=== PATIENT | female | born 1975 | race African-American/Black ===

== ENCOUNTER 2018-07-01 17:59 | Emergency (ER) | payer MEDICAID ==
[~2018-07-01] VITALS: Ht 165.1 cm; Wt 81.6 kg
[2018-07-01 18:14] VITALS: BP 141/96
== END 2018-07-02 00:05 | disposition left against medical advice (07) ==
LOC: ER 17:59
DX: R05 Cough (principal); Z53.21 Procedure and treatment not carried out due to patient leaving prior to being seen by health care provider
CPT/HCPCS: 71046

== ENCOUNTER 2018-08-09 04:42 | Emergency (ER) | payer MEDICAID ==
[~2018-08-09] VITALS: Ht 167.6 cm; Wt 81.6 kg
[2018-08-09 05:44] LABS: Basophils # (auto) 0 uL; Basophils % (auto) 0.4 % (0.0-2.0); Eosinophils # (auto) 0 uL; Eosinophils % (auto) 0.4 % (0.0-7.0); Hematocrit 41.6 % (36.0-46.0); Hemoglobin 14.1 g/dL (12.2-16.2); Lymphocytes # (auto) 1.5 uL; Lymphocytes % (auto) 15.5 % (10.0-50.0); Mean Corpuscular Hemoglobin 31.7 pg (28.0-32.0); Mean Corpuscular Hgb Conc. 33.9 g/dL (32.0-36.0); Mean Corpuscular Volume 93.3 fL (80.0-100.0); Monocytes # (auto) 0.5 uL; Monocytes % (auto) 5.2 % (0.0-12.0); Neutrophils # (auto) 7.4 uL; Neutrophils % (auto) 78.5 % (37.0-80.0); Nucleated Red Blood Cells % 0.1 %; Platelet Count (auto) 189 10^3/uL (140-450); Red Blood Cells 4.45 10^6/uL (4.0-5.20); Red Cell Distribution Width 13.8 % (11.8-14.3); White Blood Cell 9.4 10^3/uL (4.4-10.8)
[2018-08-09] MEDS ORDERED: SODIUM CHLORIDE 0.9% 1,000 ML IV ONE (05:45)
[2018-08-09 05:57] LABS: Urine Bacteria NONE SEEN /hpf (None Seen); Urine Blood Negative /uL (Negative); Urine Mucus FEW (None Seen); Urine Specific Gravity 1.027 (1.001-1.035); Urine WBC 1 /hpf (0 - 5)
[2018-08-09 06:03] LABS: Albumin 3.3 g/dL (3.4-5.0); BUN/Creatinine Ratio 11.3; Calcium 8.5 mg/dL (8.5-10.1); Potassium 3.6 mmol/L (3.5-5.1)
[2018-08-09 06:06] LABS: Bilirubin, Total 0.4 mg/dL (0.2-1.0); Total Protein 6.9 g/dL (6.4-8.2)
[2018-08-09 06:13] LABS: Amylase 33 U/L (25-115); Lipase 151 U/L (73-393)
== END 2018-08-09 07:36 | disposition home or self-care (01) ==
LOC: ER 04:43
DX: K29.70 Gastritis, unspecified, without bleeding (principal); K44.9 Diaphragmatic hernia without obstruction or gangrene; I10 Essential (primary) hypertension
CPT/HCPCS: 36415; 74176; 80053; 81001; 81025; 82150; 83690; 85025; 96360; 99285; J7030

== ENCOUNTER 2019-11-27 10:36 | Emergency (ER) | payer MEDICAID ==
[~2019-11-27] VITALS: Ht 165.1 cm; Wt 81.6 kg
[2019-11-27 11:54] VITALS: BP 116/79
== END 2019-11-27 13:21 | disposition home or self-care (01) ==
LOC: ER 10:36
DX: J20.9 Acute bronchitis, unspecified (principal); F17.210 Nicotine dependence, cigarettes, uncomplicated; I10 Essential (primary) hypertension
CPT/HCPCS: 71046

== ENCOUNTER 2021-02-04 16:35 | Emergency (ER) | payer MEDICAID ==
[~2021-02-04] VITALS: Ht 165.1 cm; Wt 86.2 kg
[2021-02-04 17:15] VITALS: BP 119/95
[2021-02-04] MEDS ORDERED: LACTULOSE 20Gm/30ML SOLN PO ONE (18:15)
== END 2021-02-04 18:23 | disposition home or self-care (01) ==
LOC: ER 16:35
DX: K59.00 Constipation, unspecified (principal); J03.90 Acute tonsillitis, unspecified; J44.9 Chronic obstructive pulmonary disease, unspecified; I10 Essential (primary) hypertension; F17.210 Nicotine dependence, cigarettes, uncomplicated
CPT/HCPCS: 74018; 93005

== ENCOUNTER 2021-02-12 02:17 | Emergency (ER) | payer MEDICAID ==
[~2021-02-12] VITALS: Ht 152.4 cm; Wt 85.7 kg
[2021-02-12 03:04] LABS: Basophils # (auto) 0.1 10 ^3/uL (0-0.2); Basophils % (auto) 0.8 % (0.0-2.0); Eosinophils # (auto) 0.1 10 ^3/uL (0-0.8); Eosinophils % (auto) 1.2 % (0.0-7.0); Hematocrit 42.3 % (36.0-46.0); Hemoglobin 14.2 g/dL (12.2-16.2); Lymphocytes # (auto) 1.3 10 ^3/uL (0.4-5.4); Lymphocytes % (auto) 16.9 % (10.0-50.0); Mean Corpuscular Hgb Conc. 33.5 g/dL (32.0-36.0); Mean Corpuscular Volume 92.5 fL (80.0-100.0); Monocytes # (auto) 0.6 10 ^3/uL (0-1.3); Monocytes % (auto) 7.6 % (0.0-12.0); Neutrophils # (auto) 5.6 10 ^3/uL (1.6-8.6); Neutrophils % (auto) 73.5 % (37.0-80.0); Nucleated Red Blood Cells % 0.2 %; Platelet Count (auto) 220 10^3/uL (140-450); Red Blood Cells 4.57 10^6/uL (4.0-5.20); Red Cell Distribution Width 13.3 % (11.8-14.3); White Blood Cell 7.6 10^3/uL (4.4-10.8)
[2021-02-12 03:23] LABS: Albumin 3.3 g/dL (3.4-5.0); Calcium 8.5 mg/dL (8.5-10.1); Magnesium 2.4 mg/dL (1.6-2.6); Potassium 3.3 mmol/L (3.5-5.1)
[2021-02-12 03:27] LABS: Bilirubin, Total 0.4 mg/dL (0.2-1.0); Total Protein 7.2 g/dL (6.4-8.2)
[2021-02-12] MEDS ORDERED: FAMOTIDINE (10MG/ML) 2ML VL IV ONE (03:45)
[2021-02-12] MEDS ORDERED: LACTATED RINGER'S 1,000 ML IV ONE (03:45)
[2021-02-12] MEDS ORDERED: DICYCLOMINE HCL (10MG/ML) 2 ML AMPULE IM ONE (03:45)
[2021-02-12 05:29] LABS: Urine Bacteria MOD /hpf (None Seen); Urine Blood 3+ /uL (Negative); Urine Mucus FEW (None Seen); Urine Specific Gravity 1.038 (1.001-1.035); Urine WBC 24 /hpf (0 - 5)
[2021-02-12 06:36] VITALS: BP 129/94
== END 2021-02-12 06:53 | disposition home or self-care (01) ==
LOC: ER 02:17
DX: N39.0 Urinary tract infection, site not specified (principal); K59.00 Constipation, unspecified; F17.210 Nicotine dependence, cigarettes, uncomplicated; J44.9 Chronic obstructive pulmonary disease, unspecified; K21.9 Gastro-esophageal reflux disease without esophagitis; I10 Essential (primary) hypertension; Z32.02 Encounter for pregnancy test, result negative
CPT/HCPCS: 36415; 80053; 81001; 81025; 83605; 83690; 83735; 85025; 96361; 96372; 96374; 99283; J0500; J3490

== ENCOUNTER 2022-07-05 07:55 | Emergency (ER) | payer MEDICAID ==
[~2022-07-05] VITALS: Ht 167.6 cm; Wt 86.7 kg
[2022-07-05 08:10] VITALS: BP 146/111
[2022-07-05] MEDS ORDERED: ACET-1158 PO (08:52)
[2022-07-05] MEDS ORDERED: KETOROLAC TROMETH 60MG/2ML VIAL IM ONE (09:00)
== END 2022-07-05 08:52 | disposition home or self-care (01) ==
LOC: ER 07:55
DX: M72.2 Plantar fascial fibromatosis (principal); M77.32 Calcaneal spur, left foot; J45.909 Unspecified asthma, uncomplicated; I10 Essential (primary) hypertension; F17.210 Nicotine dependence, cigarettes, uncomplicated
CPT/HCPCS: 73630; 96372; 99283; J1885

== ENCOUNTER 2022-07-28 04:07 | Emergency (ER) | payer MEDICAID ==
[~2022-07-28] VITALS: Ht 165.1 cm; Wt 84.0 kg
[~2022-07-28 04:07] MED LIST: ACET-1158 PO
[2022-07-28 05:27] LABS: Urine Bacteria NONE SEEN /hpf (None Seen); Urine Blood Negative /uL (Negative); Urine WBC 7 /hpf (0 - 5)
[2022-07-28 06:04] VITALS: BP 149/110
[2022-07-28] MEDS ORDERED: FLUC150T38 PO (06:49)
[2022-07-28] MEDS ORDERED: BACDST PO (06:49)
[2022-07-28] MEDS ORDERED: PRED20TA2 PO (06:49)
[2022-07-28] MEDS ORDERED: PROM1SOL4 PO (06:49)
== END 2022-07-28 07:08 | disposition home or self-care (01) ==
LOC: ER 04:07
DX: N39.0 Urinary tract infection, site not specified (principal); N76.0 Acute vaginitis; J20.9 Acute bronchitis, unspecified; I10 Essential (primary) hypertension; J45.909 Unspecified asthma, uncomplicated; K21.9 Gastro-esophageal reflux disease without esophagitis; F17.210 Nicotine dependence, cigarettes, uncomplicated; Z79.899 Other long term (current) drug therapy
CPT/HCPCS: 71045; 81001

== ENCOUNTER 2023-03-08 23:03 | Emergency (ER) | payer MEDICAID ==
[~2023-03-08] VITALS: Ht 165.1 cm; Wt 84.8 kg
[~2023-03-08 23:03] MED LIST changes: +BACDST PO; +FLUC150T38 PO; +PRED20TA2 PO; +PROM1SOL4 PO
[2023-03-08 23:48] LABS: Urine Bacteria FEW /hpf (None Seen); Urine Blood Negative /uL (Negative); Urine WBC 1 /hpf (0 - 5)
[2023-03-08 23:53] LABS: Basophils # (auto) 0.1 10 ^3/uL (0-0.2); Basophils % (auto) 0.6 % (0.0-2.0); Eosinophils # (auto) 0.1 10 ^3/uL (0-0.8); Eosinophils % (auto) 0.8 % (0.0-7.0); Hemoglobin 14.5 g/dL (12.2-16.2); Lymphocytes # (auto) 2.1 10 ^3/uL (0.4-5.4); Lymphocytes % (auto) 24.6 % (10.0-50.0); Mean Corpuscular Hemoglobin 31.4 pg (28.0-32.0); Mean Corpuscular Hgb Conc. 34.5 g/dL (32.0-36.0); Mean Corpuscular Volume 91.2 fL (80.0-100.0); Monocytes # (auto) 0.7 10 ^3/uL (0-1.3); Monocytes % (auto) 7.8 % (0.0-12.0); Neutrophils # (auto) 5.8 10 ^3/uL (1.6-8.6); Neutrophils % (auto) 66.2 % (37.0-80.0); Nucleated Red Blood Cells % 0.1 %; Red Blood Cells 4.61 10^6/uL (4.0-5.20); Red Cell Distribution Width 13.8 % (11.8-14.3); White Blood Cell 8.7 10^3/uL (4.4-10.8)
[2023-03-09 00:14] LABS: Albumin 3.2 g/dL (3.4-5.0); BUN/Creatinine Ratio 9.7 (10.0-20.0); Calcium 9.1 mg/dL (8.5-10.1); Potassium 3.5 mmol/L (3.5-5.1)
[2023-03-09 00:16] LABS: Bilirubin, Total 0.4 mg/dL (0.2-1.0); Total Protein 7.4 g/dL (6.4-8.2)
[2023-03-09] MEDS ORDERED: KETOROLAC TROMETH 30 MG/ML 1ML VIAL IM ONE (00:45)
[2023-03-09] MEDS ORDERED: cefTRIAXone SOD 1,000 MG VL IM ONE (00:45)
[2023-03-09] MEDS ORDERED: NITR-87 PO (01:18)
[2023-03-09 02:05] VITALS: BP 123/80
== END 2023-03-09 02:21 | disposition home or self-care (01) ==
LOC: ER 23:03
DX: N39.0 Urinary tract infection, site not specified (principal); F17.210 Nicotine dependence, cigarettes, uncomplicated; J45.909 Unspecified asthma, uncomplicated; K21.9 Gastro-esophageal reflux disease without esophagitis; I10 Essential (primary) hypertension; Z88.6 Allergy status to analgesic agent; Z88.2 Allergy status to sulfonamides
CPT/HCPCS: 36415; 74176; 80053; 81001; 83690; 85025; 96372; 99285; J0696; J1885

== ENCOUNTER 2023-04-05 19:57 | Emergency (ER) | payer MEDICAID, OTHER ==
[~2023-04-05] VITALS: Ht 165.1 cm; Wt 84.1 kg
[~2023-04-05 19:57] MED LIST changes: -ACET-1158 PO; +ACET500T58 PO; +NITR-87 PO
[2023-04-05] MEDS ORDERED: HYDROcodone-ACET 5/325MG TAB PO ONE (23:30)
[2023-04-05] MEDS ORDERED: AMOXICILLIN/CLAVUL 875 MG TAB PO ONE (23:30)
[2023-04-05] MEDS ORDERED: AUG875T PO (23:39)
[2023-04-05] MEDS ORDERED: IBU600T PO (23:39)
[2023-04-06 00:16] VITALS: BP 103/65
== END 2023-04-06 00:16 | disposition home or self-care (01) ==
LOC: ER 20:04
DX: T16.1XXA Foreign body in right ear, initial encounter (principal); H66.91 Otitis media, unspecified, right ear; J45.909 Unspecified asthma, uncomplicated; I10 Essential (primary) hypertension; K21.9 Gastro-esophageal reflux disease without esophagitis; F17.210 Nicotine dependence, cigarettes, uncomplicated; Z79.1 Long term (current) use of non-steroidal anti-inflammatories (NSAID); Z98.890 Other specified postprocedural states; Z79.899 Other long term (current) drug therapy; X58.XXXA Exposure to other specified factors, initial encounter; Y93.89 Activity, other specified; Y92.89 Other specified places as the place of occurrence of the external cause; Y99.8 Other external cause status

== ENCOUNTER 2023-08-15 07:04 | Emergency (ER) | payer OTHER ==
[~2023-08-15] VITALS: Ht 165.1 cm; Wt 83.6 kg
[~2023-08-15 07:04] MED LIST changes: +AUG875T PO; +IBU600T PO
[2023-08-15 07:20] VITALS: BP 111/89; PULSE 85; RESP 18; O2SAT 97
[2023-08-15 07:50] LABS: Urine Bacteria NONE SEEN /hpf (None Seen); Urine Blood Negative /uL (Negative); Urine Clarity Clear (Clear); Urine Color Straw (Yellow); Urine Protein, UAD Negative (Negative); Urine Specific Gravity 1.002 (1.001-1.035); Urine Urobilinogen Normal (Negative); Urine WBC <1 /hpf (0 - 5); Urine pH 6.5 (5.0-8.0)
[2023-08-15 08:27] LABS: Basophils # (auto) 0.1 10 ^3/uL (0-0.2); Basophils % (auto) 0.7 % (0.0-2.0); Eosinophils # (auto) 0.1 10 ^3/uL (0-0.8); Eosinophils % (auto) 0.7 % (0.0-7.0); Lymphocytes # (auto) 2.7 10 ^3/uL (0.4-5.4); Lymphocytes % (auto) 33.4 % (10.0-50.0); Mean Corpuscular Hemoglobin 30.5 pg (28.0-32.0); Mean Corpuscular Hgb Conc. 33.3 g/dL (32.0-36.0); Mean Corpuscular Volume 91.4 fL (80.0-100.0); Monocytes # (auto) 0.5 10 ^3/uL (0-1.3); Monocytes % (auto) 6.4 % (0.0-12.0); Neutrophils # (auto) 4.7 10 ^3/uL (1.6-8.6); Neutrophils % (auto) 58.8 % (37.0-80.0); Nucleated Red Blood Cells % 0.2 %; Red Blood Cells 4.59 10^6/uL (4.0-5.20); Red Cell Distribution Width 13.3 % (11.8-14.3)
[2023-08-15] MEDS ORDERED: PANT40TA2 PO (08:40)
[2023-08-15 08:42] LABS: Alanine Aminotransferase 12 U/L (7-40); Albumin 4.4 g/dL (3.2-4.8); Alkaline Phosphatase 105 U/L (46-116); Anion Gap 4 (5-15); Aspartate Aminotransferase 12 U/L (13-40); BUN/Creatinine Ratio 8.1 (10.0-20.0); Blood Urea Nitrogen 7 mg/dL (9-23); Calcium 9.8 mg/dL (8.7-10.4); Carbon Dioxide 31 mmol/L (20-30); Chloride 104 mmol/L (98-107); Glucose 114 mg/dL (74-106); Lipase 95 U/L (12-53); Potassium 3.7 mmol/L (3.5-5.1); Sodium 139 mmol/L (136-145)
[2023-08-15 08:43] LABS: Bilirubin, Total 0.5 mg/dL (0.2-1.0); Total Protein 7.2 g/dL (5.7-8.2)
== END 2023-08-15 10:05 | disposition left against medical advice (07) ==
LOC: ER 07:04
DX: K29.70 Gastritis, unspecified, without bleeding (principal); J45.909 Unspecified asthma, uncomplicated; K21.9 Gastro-esophageal reflux disease without esophagitis; I10 Essential (primary) hypertension; F17.210 Nicotine dependence, cigarettes, uncomplicated; Z98.890 Other specified postprocedural states; Z79.899 Other long term (current) drug therapy
CPT/HCPCS: 36415; 74176; 80053; 81001; 83690; 85025

== ENCOUNTER 2024-02-02 00:17 | Emergency (ER) | payer OTHER ==
[~2024-02-02] VITALS: Ht 165.1 cm; Wt 84.9 kg
[~2024-02-02 00:17] MED LIST changes: +PANT40TA2 PO
[2024-02-02 00:35] LABS: Basophils # (auto) 0.1 10 ^3/uL (0-0.2); Basophils % (auto) 0.8 % (0.0-2.0); Eosinophils # (auto) 0.1 10 ^3/uL (0-0.8); Eosinophils % (auto) 0.7 % (0.0-7.0); Hemoglobin 14.5 g/dL (12.2-16.2); Lymphocytes # (auto) 3.7 10 ^3/uL (0.4-5.4); Lymphocytes % (auto) 36.6 % (10.0-50.0); Mean Corpuscular Hemoglobin 30.3 pg (28.0-32.0); Mean Corpuscular Volume 91.9 fL (80.0-100.0); Monocytes # (auto) 0.7 10 ^3/uL (0-1.3); Monocytes % (auto) 7.2 % (0.0-12.0); Neutrophils # (auto) 5.6 10 ^3/uL (1.6-8.6); Neutrophils % (auto) 54.7 % (37.0-80.0); Nucleated Red Blood Cells % 0.1 %; Red Blood Cells 4.79 10^6/uL (4.0-5.20); White Blood Cell 10.2 10^3/uL (4.4-10.8)
[2024-02-02] MEDS: MAALOX PLUS or MAALOX 30 ML PO ONE (00:45)
[2024-02-02] MEDS: LIDOCAINE VISCOUS 2% 15ML UD PO ONE (00:45)
[2024-02-02 00:55] LABS: Alanine Aminotransferase 13 U/L (7-40); Albumin 4.4 g/dL (3.2-4.8); Alkaline Phosphatase 106 U/L (46-116); Anion Gap 3 (5-15); Aspartate Aminotransferase 11 U/L (13-40); BUN/Creatinine Ratio 12.1 (10.0-20.0); Bilirubin, Total 0.4 mg/dL (0.2-1.0); Blood Urea Nitrogen 12 mg/dL (9-23); Calcium 9.7 mg/dL (8.7-10.4); Carbon Dioxide 29 mmol/L (20-30); Chloride 104 mmol/L (98-107); Glucose 134 mg/dL (74-106); Potassium 3.5 mmol/L (3.5-5.1); Sodium 136 mmol/L (136-145); Total Protein 7.1 g/dL (5.7-8.2)
[2024-02-02 02:05] LABS: Urine Bacteria None Seen /hpf (None Seen)
[2024-02-02 02:13] LABS: Urine Blood Negative /uL (Negative); Urine Clarity Clear (Clear); Urine Color Colorless (Yellow); Urine Protein, UAD Negative (Negative); Urine Specific Gravity 1.006 (1.001-1.035); Urine Urobilinogen Normal (Negative); Urine WBC <1 /hpf (0 - 5)
[2024-02-02] MEDS: FAMOTIDINE 20 MG TAB PO ONE (05:09)
[2024-02-02 05:12] VITALS: BP 132/84; PULSE 82; RESP 16; TEMP 97.8; O2SAT 98
== END 2024-02-02 05:11 | disposition home or self-care (01) ==
LOC: ER 00:17
DX: R07.89 Other chest pain (principal); R10.13 Epigastric pain; J45.909 Unspecified asthma, uncomplicated; K21.9 Gastro-esophageal reflux disease without esophagitis; I10 Essential (primary) hypertension; F17.210 Nicotine dependence, cigarettes, uncomplicated
CPT/HCPCS: 36415; 71045; 74176; 80053; 81001; 83690; 84484; 85025; 93005

== ENCOUNTER 2024-07-14 03:51 | Emergency (ER) | payer OTHER ==
[~2024-07-14] VITALS: Ht 165.1 cm; Wt 83.3 kg
[2024-07-14 04:15] VITALS: BP 132/98; TEMP 98.2
[2024-07-14] MEDS: MAALOX PLUS or MAALOX 30 ML PO ONE (04:34)
[2024-07-14] MEDS: FAMOTIDINE 20 MG TAB PO ONE (04:35)
[2024-07-14 04:43] LABS: Alanine Aminotransferase 10 U/L (7-40); Albumin 4.2 g/dL (3.2-4.8); Alkaline Phosphatase 104 U/L (46-116); Anion Gap 3 (5-15); Aspartate Aminotransferase 10 U/L (13-40); BUN/Creatinine Ratio 13.2 (10.0-20.0); Bilirubin, Total 0.4 mg/dL (0.2-1.0); Blood Urea Nitrogen 12 mg/dL (9-23); Calcium 9.4 mg/dL (8.7-10.4); Carbon Dioxide 30 mmol/L (20-31); Chloride 105 mmol/L (98-107); Glucose 109 mg/dL (74-106); Potassium 3.4 mmol/L (3.5-5.1); Sodium 138 mmol/L (136-145); Total Protein 6.9 g/dL (5.7-8.2)
[2024-07-14 04:44] LABS: Basophils # (auto) 0 10 ^3/uL (0-0.2); Basophils % (auto) 0.3 % (0.0-2.0); Eosinophils # (auto) 0 10 ^3/uL (0-0.8); Eosinophils % (auto) 0.3 % (0.0-7.0); Hemoglobin 14.1 g/dL (12.2-16.2); Lymphocytes # (auto) 3.6 10 ^3/uL (0.4-5.4); Lymphocytes % (auto) 33.4 % (10.0-50.0); Mean Corpuscular Hemoglobin 31.4 pg (28.0-32.0); Mean Corpuscular Hgb Conc. 34.3 g/dL (32.0-36.0); Mean Corpuscular Volume 91.4 fL (80.0-100.0); Monocytes # (auto) 0.7 10 ^3/uL (0-1.3); Monocytes % (auto) 6.2 % (0.0-12.0); Neutrophils # (auto) 6.4 10 ^3/uL (1.6-8.6); Neutrophils % (auto) 59.8 % (37.0-80.0); Nucleated Red Blood Cells % 0.1 %; Platelet Count (auto) 241 10^3/uL (140-450); Red Blood Cells 4.49 10^6/uL (4.0-5.20); Red Cell Distribution Width 13.6 % (11.8-14.3); White Blood Cell 10.7 10^3/uL (4.4-10.8)
[2024-07-14 04:57] LABS: Urine Bacteria FEW /hpf (None Seen); Urine Blood 3+ /uL (Negative); Urine Clarity Clear (Clear); Urine Color Colorless (Yellow); Urine Protein, UAD TRACE (Negative); Urine Specific Gravity 1.009 (1.001-1.035); Urine Urobilinogen Normal (Negative); Urine WBC 2 /hpf (0 - 5)
[2024-07-14 06:27] VITALS: PULSE 61; RESP 12; O2SAT 98
== END 2024-07-14 07:35 | disposition left against medical advice (07) ==
LOC: ER 03:51
DX: R07.89 Other chest pain (principal); R53.1 Weakness; R11.2 Nausea with vomiting, unspecified; I10 Essential (primary) hypertension; K21.9 Gastro-esophageal reflux disease without esophagitis; J45.909 Unspecified asthma, uncomplicated; F17.210 Nicotine dependence, cigarettes, uncomplicated; Z98.890 Other specified postprocedural states; Z79.899 Other long term (current) drug therapy
CPT/HCPCS: 36415; 71045; 80053; 81001; 83690; 84484; 85025; 93005

== ENCOUNTER 2024-10-19 08:15 | Emergency (ER) | payer MEDICAID, OTHER ==
[~2024-10-19] VITALS: Ht 165.1 cm; Wt 81.7 kg
[2024-10-19] MEDS ORDERED: CEPH500C PO (08:52)
[2024-10-19 08:53] VITALS: BP 122/76; PULSE 70; RESP 16; TEMP 98; O2SAT 98
--- NOTE | 2024-10-19 08:56 | ED.PDOC ---
History of Present Illness(SKN HPI Comments A 49 YEAR OLD FEMALE PRESENTS TO THE ED WITH CHIEF COMPLAINT OF BUMP TO SKIN. PATIENT REPORTS THAT SHE HAS BEEN EXPERIENCING A WORSENING BUMP TO HER RIGHT THIGH THAT IS PAINFUL AND SWOLLEN FOR THE PAST 2 WEEKS. PATIENT RELAYS THAT SHE HAS ASSOCIATED COUGH, SORE THROAT, AND CONGESTION FOR THE PAST 2 DAYS. PATIENT DENIES ANY N/V/D, DIZZINESS, CHEST PAIN, SOB, HEADACHE, OR ABDOMINAL PAIN. Chief Complaint: Rash Time Seen by MD: 08:51 Primary Care Provider: NIKKO History of Present Illness: Nurses Notes, Medications, Allergies Allergies: Coded Allergies: NO KNOWN ALLERGIES (Unverified , 11/27/19) Home Meds Active Scripts Promethazine-Dm (Promethazine Dm 6.25-15 mg/5Ml) 1 Natalia Natalia, 5 ML PO TID, #160 ML Prov:KIMBERLI ESPINOSA 10/19/24 Cephalexin Monohydrate (Cephalexin) 500 Mg Cap, 1 CAP PO QID, #40 CAP Prov:KIMBERLI ESPINOSA 10/19/24 Pantoprazole Sodium Sesquihydr (Protonix) 40 Mg Tab, 40 MG PO DAILY for 10 Days, #10 TAB Prov:AMERICA EGAN MD 08/15/23 Ibuprofen Micronized (MOTRIN TABLET) 600 Mg Tb, 1 TAB PO TID PRN, #20 TAB as needed for pain Prov:YOAN JO Q VP SOFTWARE ENGINEERING 04/05/23 Amoxicillin & Pot Clavulanate (AUGMENTIN TABLET) 875 Mg Tb, 1 TAB PO BID for 10 Days, #20 TAB Prov:YOAN JO Q VP SOFTWARE ENGINEERING 04/05/23 Nitrofurantoin Monohydrate Mac (Macrobid) 100 Mg Cap, 100 MG PO BID for 7 Days, #14 CAP Prov:BRISA JUDDP 03/09/23 Promethazine-Dm (Promethazine Dm 6.25-15 mg/5Ml) 1 Natalia Natalia, 5 ML PO TID, #150 ML Prov:KIMBERLI ESPINOSA 07/28/22 Fluconazole (Diflucan) 150 Mg Tab, 150 MG PO DAILY, #1 TAB Prov:KIMBERLI ESPINOSA 07/28/22 Prednisone (Prednisone) 20 Mg Tab, 60 MG PO DAILY for 5 Days, #15 TAB Prov:KIMBERLI ESPINOSA 07/28/22 Sulfamethoxazole W/Trimethopri (Bactrim Ds Tablet) 1 Tab Tb, 1 TAB PO BID for 10 Days, #20 TAB Prov:KIMBERLI ESPINOSA 07/28/22 Acetaminophen (Acetaminophen) 500 Mg Tab, 500 MG PO QIDP, #30 TAB 0 Refills Prov:CAMILO MARIE 07/05/22 Information Source: Patient Mode of Arrival: Ambulatory Severity: Moderate Timing: Days Duration: Since onset Prehospital treatment: None Location: Leg Mechanism: Spontaneous Onset Object: None Condition of Object: None Retained Foreign Body: No Wound Type: Other (A BUMP ON RIGHT POSTERIOR THIGH ) Immunization Status of Animal: NA Tetanus: Unknown History of: None Associated Signs and Symptoms: Redness, Pain Past Medical History PAST MEDICAL HISTORY: Asthma, GERD, HTN, PUD Past Medical History (Other): CHRONIC LOW BACK PAIN 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 History: Denies all MARKETING ASSOCIATE Hx Family History Family History: Reviewed,noncontributory to illness, Family hx of DM, Family hx of heart ivanna Social History Smoker: Cigarettes, Less Than 1 Pack/Day Alcohol: Denies ETOH Use Drugs: Denies Drug Use Lives In: Home Constitutional: denies: chills, diaphoresis, fatigue, fever, malaise, sweats, weakness, others EENTM: reports: nose congestion, throat pain, throat swelling; denies: blurred vision, double vision, ear bleeding, ear discharge, ear drainage, ear pain, ear ringing, eye pain, eye redness, hearing loss, mouth pain, mouth swelling, nasal discharge, nose bleeding, nose pain, photophobia, tearing, voice changes, others Respiratory: reports: cough; denies: hemoptysis, orthopnea, SOB at rest, shortness of breath, SOB with excertion, stridor, wheezing, others Cardiovascular: denies: chest pain, dizzy spells, diaphoresis, Dyspnea on exertion, edema, irregular heart beat, left arm pain, lightheadedness, palpitations, PND, syncope, others Gastrointestinal: denies: abdomen distended, abdominal pain, blood streaked bowels, constipated, diarrhea, dysphagia, difficulty swallowing, hematemesis, melena, nausea, poor appetite, poor fluid intake, rectal bleeding, rectal pain, vomiting, others Genitourinary: denies: abnormal vagina bleeding, burning, dyspareunia, dysuria, flank pain, frequency, hematuria, incontinence, pain, , vagina discharge, urgency, others Neurological: denies: dizziness, fainting, headache, left sided numbness, left sided weakness, numbness, paresthesia, pre-existing deficit, right sided numbness, right sided weakness, seizure, speech problems, tingling, tremors, weakness, others Musculoskeletal: denies: back pain, gout, joint pain, joint swelling, muscle pain, muscle stiffness, neck pain, others Integumetry: reports: lesions (RIGHT THIGH LESION/BUMP); denies: bruises, change in color, change in hair/nails, dryness, laceration, lumps, rash, wounds, others Allergic/Immunocompromised: denies: Difficulty Healing, Frequent Infections, Hives, Itching, others Hematologic/Lymphatic: denies: anemia, blood clots, easy bleeding, easy bruising, swollen glands, others Endocrine: denies: excessive hunger, excessive sweating, excessive thirst, excessive urination, flushing, intolerance to cold, intolerance to heat, unexplained weight gain, unexplained weight loss, others Psychiatric: denies: anxiety, bipolar disorder, depression, hopeless, panic disorder, schizophrenia, sleepless, suicidal, others All Other Systems: Reviewed and Negative Physical Exam General Appearance: No Apparent Distress, Normal HEENT: PERRL/EOMI, Pharyngeal Erythema (TONSILLAR SWELLING, NO EXUDATES. ), TMs Normal Neck: Full Range of Motion, Non-Tender, Normal, Normal Inspection Respiratory: Chest Non-Tender, Lungs Clear, No Accessory Muscle Use, No Respiratory Distress, Normal Breath Sounds Cardiovascular: No Edema, No JVD, No Murmur, No Gallop, Normal Peripheral Pulses, Regular Rate/Rhythm Breast Exam: Deferred Gastrointestinal: No Organomegaly, Non Tender, No Pulsatile Mass, Normal Bowel Sounds, Soft Genitalia: Deferred Pelvic: Deferred Rectal: Deferred Extremities: No calf tenderness, Normal capillary refill, Normal inspection, Normal range of motion, Non-tender, No pedal edema Musculoskeletal : Apperance: Normal Neurologic: Alert, test baker II-XII nml as Tested, No Motor Deficits, Normal Affect, Normal Mood, No Sensory Deficits Cerebellar Function: Normal Reflexes: Normal Skin: Dry, Normal Color, Warm, Other ([id number] BUMP WITH LOCALIZED REDNESS AND TENDERNESS ON RIGHT POSTERIOR THIGH, NO OPEN WOUND AND PUS DRAINAGE, +SKIN CYST. ) Peripheral Pulses: 2+ carotid (R), 2+ carotid (L) Lymphatic: No Adenopathy Was a procedure done? Was a procedure done?: No Differential Diagnosis (INTG) Differential Diagnosis: Abscess, Cellulitis, Intertrigo Abscess: Felon, Other (SKIN CYST OF RIGHT POSTERIOR THIGH. ) X-Ray, Labs, Meds, VS Vital Signs Date Time Temp Pulse Resp B/P (MAP) Pulse Ox O2 Delivery O2 Flow Rate FiO2 10/19/24 08:53 70 16 98 Room Air 10/19/24 08:53 98.0 70 16 122/76 (91) 98 98.0 10/19/24 08:32 97.9 67 16 119/83 (95) 97 X-Ray, Labs, Meds, VS Comment EXTERNAL MEDICAL RECORDS REVIEWED: 07/14/24 FOR CHEST PAIN INDEPENDENT HISTORIANS: [NONE] SOCIAL DETERMINANTS OF HEALTH: [NONE] LABS ORDERED: NONE REVIEWED AND INTERPRETED RESULTS: NONE IMAGING ORDERED: NONE TREATMENTS ORDERED: NONE PROCEDURES PERFORMED: NONE CRITICAL CARE TIME: NONE BASED ON HISTORY OF PRESENT ILLNESS, AND PHYSICAL EXAM, PATIENT WILL BE DISCHARGED HOME. DISCUSSED PLAN FOR DISCHARGE HOME WITH RX KEFLEX AND PHENERGAN DM. MEDICATION WARNINGS GIVEN. SHARED DECISION MAKING: DISCUSSED WITH PATIENT THAT THEIR WORKUP WAS NORMAL. PATIENT INSTRUCTED TO FOLLOW UP WITH PRIMARY CARE PROVIDER IN 1-2 DAYS FOR RE- EVALUATION OF SYMPTOMS. PATIENT VERBALIZES UNDERSTANDING TO RETURN TO ED FOR NEW OR WORSENING SYMPTOMS OR IF FOLLOW UP WITH PCP CANNOT BE OBTAINED. PATIENT FEELS COMFORTABLE GOING HOME AT THIS TIME. ALL QUESTIONS ADDRESSED AT TIME OF DISCHARGE. Time of 1ST Reevaluation: 09:00 Reevaluation 1ST: Unchanged Patient Education/Counseling: Diagnosis, Treatment, Need For Follow Up Family Education/Counseling: Diagnosis, Treatment, No Family Present Medical Screening: No EMC Exist At This Time Departure 1 Departure Time of Disposition: 09:00 Impression: Primary Impression: Skin cyst Additional Impression: Acute tonsillitis Qualified Codes: J03.90 - Acute tonsillitis, unspecified Disposition: HOME / SELF CARE / HOMELESS Condition: Stable Additional Instructions: FOLLOW-UP WITH PCP IN 1 TO 2 DAYS. TAKE MEDICATIONS PRESCRIBED. RETURN TO ED FOR ANY NEW OR WORSENING SYMPTOMS. e-Prescriptions Promethazine-Dm (Promethazine Dm 6.25-15 mg/5Ml) 1 Natalia Natalia 5 ML PO TID, #160 ML Prov: KIMBERLI ESPINOSA 10/19/24 Cephalexin Monohydrate (Cephalexin) 500 Mg Cap 1 CAP PO QID, #40 CAP Prov: KIMBERLI ESPINOSA 10/19/24 Discharged With: Self Critical Care Note Critical Care Time?: No Stability Stability form required: No Heart Score Heart Score: Heart Score Response (Comments) Value History N/A 0 EKG N/A 0 Age N/A 0 Risk Factors N/A 0 Troponin N/A 0 Total 0 I personally scribed for KIMBERLI ESPINOSA ([email or web address]) on 10/19/24 at 08:56. Electronically submitted by Gopi Acuna ([email or web address]). KIMBERLI ESPINOSA Oct 19, 2024 08:56
== END 2024-10-19 09:09 | disposition home or self-care (01) ==
LOC: ER 08:15
DX: L72.8 Other follicular cysts of the skin and subcutaneous tissue (principal); J03.90 Acute tonsillitis, unspecified; I10 Essential (primary) hypertension; J45.909 Unspecified asthma, uncomplicated; K21.9 Gastro-esophageal reflux disease without esophagitis; G89.29 Other chronic pain; M54.50 Low back pain, unspecified; F17.210 Nicotine dependence, cigarettes, uncomplicated; Z79.52 Long term (current) use of systemic steroids; Z79.899 Other long term (current) drug therapy; Z87.11 Personal history of peptic ulcer disease

== ENCOUNTER 2024-12-17 07:04 | Emergency (ER) | payer MEDICAID ==
[~2024-12-17] VITALS: Ht 165.1 cm; Wt 80.7 kg
[~2024-12-17 07:04] MED LIST changes: +CEPH500C PO
[2024-12-17 07:40] VITALS: BP 106/80; PULSE 76; RESP 16; TEMP 98.2; O2SAT 96
[2024-12-17 07:46] LABS: Urine Bacteria None Seen /hpf (None Seen)
[2024-12-17] MEDS ORDERED: NYS5LQ MT (08:06)
[2024-12-17] MEDS ORDERED: MAGIC MT (08:06)
--- NOTE | 2024-12-17 08:07 | ED.PDOC ---
Eye-HPI HPI Comments 49 year old with hx of asthma/copd and HTN presents for possible oral thrush after completing a course of Keflex Was seen at for follow up and was Rx medication for oral thrush and amoxicillin for AOM Today she c/o tingling and burning sensation Chief Complaint: Thrush Time Seen by MD: 07:28 Primary Care Provider: NIKKO Sheldon Notes: Nurses Notes, Medications, Allergies Allergies: Uncoded Allergies: KFLEX (Allergy, Unknown, 12/17/24) Home Meds Active Scripts Alum & Mag Hydrox-Simethicone (Magic Mouthwash) 80 Ml Ss, 80 ML MT TID for 7 Days, #600 ML 0 Refills Prov:ALEX ALCALA RIG SUPERINTENDENT 12/17/24 Nystatin (Mouth-Throat) (Mycostatin (Mouth-Throat)) 500,000 Units/5 Ml Ss, 5 ML MT QID for 10 Days, #200 ML 0 Refills Prov:ALEX ALCALA NP 12/17/24 Mouthwashes (Biotene Dry Mouth Mouthwa) Dry Mth Liq, 1 MTH MT UD for 3 Days, #200 LIQ 0 Refills Prov:ALEX ALCALA RIG SUPERINTENDENT 12/17/24 Promethazine-Dm (Promethazine Dm 6.25-15 mg/5Ml) 1 Natalia Natalia, 5 ML PO TID, #160 ML Prov:KIMBERLI ESPINOSA 10/19/24 Cephalexin Monohydrate (Cephalexin) 500 Mg Cap, 1 CAP PO QID, #40 CAP Prov:KIMBERLI ESPINOSA 10/19/24 Pantoprazole Sodium Sesquihydr (Protonix) 40 Mg Tab, 40 MG PO DAILY for 10 Days, #10 TAB Prov:AMERICA EGAN MD 08/15/23 Ibuprofen Micronized (MOTRIN TABLET) 600 Mg Tb, 1 TAB PO TID PRN, #20 TAB as needed for pain Prov:YOAN JO Q RIG SUPERINTENDENT 04/05/23 Amoxicillin & Pot Clavulanate (AUGMENTIN TABLET) 875 Mg Tb, 1 TAB PO BID for 10 Days, #20 TAB Prov:YOAN JO Q RIG SUPERINTENDENT 04/05/23 Nitrofurantoin Monohydrate Mac (Macrobid) 100 Mg Cap, 100 MG PO BID for 7 Days, #14 CAP Prov:BRISA JUDD 03/09/23 Promethazine-Dm (Promethazine Dm 6.25-15 mg/5Ml) 1 Natalia Natalia, 5 ML PO TID, #150 ML Prov:KIMBERLI ESPINOSA 07/28/22 Fluconazole (Diflucan) 150 Mg Tab, 150 MG PO DAILY, #1 TAB Prov:KIMBERLI ESPINOSA 07/28/22 Prednisone (Prednisone) 20 Mg Tab, 60 MG PO DAILY for 5 Days, #15 TAB Prov:KIMBERLI ESPINOSA 07/28/22 Sulfamethoxazole W/Trimethopri (Bactrim Ds Tablet) 1 Tab Tb, 1 TAB PO BID for 10 Days, #20 TAB Prov:KIMBERLI ESPINOSA 07/28/22 Acetaminophen (Acetaminophen) 500 Mg Tab, 500 MG PO QIDP, #30 TAB 0 Refills Prov:CAMILO MARIE 07/05/22 Information Source: Patient Mode of Arrival: Ambulatory Past Medical History PAST MEDICAL HISTORY: Asthma, GERD, HTN, PUD 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 MMM. ) Neck: Full Range of Motion, Non-Tender, Normal, Normal Inspection Respiratory: Chest Non-Tender, Lungs Clear, No Accessory Muscle Use, No Respiratory Distress, Normal Breath Sounds Cardiovascular: No Murmur, No Gallop, Regular Rate/Rhythm Breast Exam: Deferred Gastrointestinal: No Organomegaly, Non Tender, No Pulsatile Mass, Normal Bowel Sounds, Soft Genitalia: Deferred Pelvic: Deferred Rectal: Deferred Extremities: No calf tenderness, Normal capillary refill, Normal inspection, Normal range of motion, Non-tender, No pedal edema Musculoskeletal : Apperance: Normal Neurologic: Alert, ibm mainframe developer II-XII nml as Tested, No Motor Deficits, Normal Affect, Normal Mood, No Sensory Deficits Cerebellar Function: Normal Reflexes: Normal Skin: Dry, Normal Color, Warm Lymphatic: No Adenopathy Was a procedure done? Was a procedure done?: No EENT DIFF Eye: Other Sore Throat: Herpangina X-Ray, Labs, Meds, VS Vital Signs Date Time Temp Pulse Resp B/P (MAP) Pulse Ox O2 Delivery O2 Flow Rate FiO2 12/17/24 07:40 76 16 96 Room Air 12/17/24 07:40 98.2 76 16 106/80 (89) 96 98.2 12/17/24 07:27 98.2 76 16 106/80 (89) 96 Lab Test 12/17/24 07:32 Range/Units Urine Color Light-yellow Yellow Urine Clarity Clear Clear Urine pH 5.5 5.0-9.0 Urine Specific [place] 1.015 1.001-1.035 Urine Protein Negative Negative Urine Ketones Negative Negative Urine Blood Negative Negative /uL Urine Nitrite Negative Negative Urine Bilirubin Negative Negative Urine Urobilinogen Normal Negative mg/dL Urine Leukocyte Esterase Negative Negative /uL Urine RBC 1 0 - 4 /hpf Urine Microscopic WBC < 1 0-5 /HPF Urine Squamous Epithelial Cells Few <5 /hpf Urine Bacteria None seen None Seen /hpf Urine Glucose Normal Normal mg/dL X-Ray, Labs, Meds, VS Comment On reevaluation, patient had symptomatic improvement. Patient is stable for discharge at this time. External notes reviewed. Test results and diagnostic imaging interpreted. All diagnostic findings, discharge care, education and instructions provided Follow-up with PCP in 2 to 3 days Patient verbalized understanding and agreed to treatment plan Vital signs stable, afebrile, no acute distress noted Patient ambulatory with strong steady gait Advised to return precautions for any new or worsening symptoms, return to ER immediately for re-evaluation Patient is aware that the purpose of this visit was for an acute medical e mergency requiring emergent stabilization. Chronic conditions, including malignancies have not been ruled out. Patient is instructed to follow up with PCP as directed and discharge instructions for continued care and workup. If unable to arrange follow-up, patient is to return to the emergency department for reassessment. Patient (parent or legal guardian if applicable) was given verbal and written discharge instructions and acknowledges understanding. Time of 1ST Reevaluation: 08:00 Reevaluation 1ST: Improved Patient Education/Counseling: Diagnosis, Treatment Family Education/Counseling: Diagnosis, Treatment Departure 1 Departure Time of Disposition: 08:05 Impression: Primary Impression: Oral thrush Disposition: 01 HOME / SELF CARE / HOMELESS Condition: Stable e-Prescriptions Alum & Mag Hydrox-Simethicone (Magic Mouthwash) 80 Ml Ss 80 ML MT TID for 7 Days, #600 ML 0 Refills Prov: ALEX ALCALA NP 12/17/24 Nystatin (Mouth-Throat) (Mycostatin (Mouth-Throat)) 500,000 Units/5 Ml Ss 5 ML MT QID for 10 Days, #200 ML 0 Refills Prov: ALEX ALCALA NP 12/17/24 Mouthwashes (Biotene Dry Mouth Mouthwa) Dry Mth Liq 1 MTH MT UD for 3 Days, #200 LIQ 0 Refills Prov: ALEX ALCALA NP 12/17/24 Critical Care Note Critical Care Time?: No Stability Stability form required: No Heart Score Heart Score: Heart Score Response (Comments) Value History N/A 0 EKG N/A 0 Age N/A 0 Risk Factors N/A 0 Troponin N/A 0 Total 0 ALEX ALCALA NP Dec 17, 2024 08:07
[2024-12-17] MEDS ORDERED: [UNRECOGNIZED DRUG - CODE] MT (08:09)
[2024-12-17 08:28] LABS: Urine Blood Negative /uL (Negative); Urine Clarity Clear (Clear); Urine Color Light-Yellow (Yellow); Urine Protein, UAD Negative (Negative); Urine Specific Gravity 1.015 (1.001-1.035); Urine Squamous Epithelial Cell FEW /hpf (<5); Urine Urobilinogen Normal (Negative); Urine pH 5.5 (5.0-9.0)
[2024-12-17 08:34] LABS: Urine WBC < 1 /HPF (0-5)
== END 2024-12-17 08:22 | disposition home or self-care (01) ==
LOC: ER 07:04
DX: B37.0 Candidal stomatitis (principal); I10 Essential (primary) hypertension; K21.9 Gastro-esophageal reflux disease without esophagitis; J45.909 Unspecified asthma, uncomplicated; F17.210 Nicotine dependence, cigarettes, uncomplicated; Z79.52 Long term (current) use of systemic steroids; Z79.899 Other long term (current) drug therapy
CPT/HCPCS: 81001

== ENCOUNTER 2025-01-13 13:15 | Emergency (ER) | payer MEDICAID ==
[~2025-01-13] VITALS: Ht 165.1 cm; Wt 83.5 kg
[~2025-01-13 13:15] MED LIST changes: +MAGIC MT; +NYS5LQ MT; +[UNRECOGNIZED DRUG - CODE] MT
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
[2025-01-13 13:44] LABS: Urine Bacteria None Seen /hpf (None Seen)
[2025-01-13 13:54] LABS: Basophils # (auto) 0 10 ^3/uL (0-0.2); Basophils % (auto) 0.5 % (0.0-2.0); Eosinophils # (auto) 0 10 ^3/uL (0-0.8); Eosinophils % (auto) 0.5 % (0.0-7.0); Hematocrit 42.6 % (36.0-46.0); Hemoglobin 14.4 g/dL (12.2-16.2); Lymphocytes # (auto) 3.4 10 ^3/uL (0.4-5.4); Lymphocytes % (auto) 38.7 % (10.0-50.0); Mean Corpuscular Hemoglobin 31.1 pg (28.0-32.0); Mean Corpuscular Hgb Conc. 33.9 g/dL (32.0-36.0); Mean Corpuscular Volume 91.9 fL (80.0-100.0); Monocytes # (auto) 0.6 10 ^3/uL (0-1.3); Monocytes % (auto) 6.4 % (0.0-12.0); Neutrophils # (auto) 4.8 10 ^3/uL (1.6-8.6); Neutrophils % (auto) 53.9 % (37.0-80.0); Platelet Count (auto) 293 10^3/uL (140-450); Red Blood Cells 4.64 10^6/uL (4.0-5.20); Red Cell Distribution Width 14.2 % (11.8-14.3); White Blood Cell 8.9 10^3/uL (4.4-10.8)
--- NOTE | 2025-01-13 14:05 | DVH ---
CT ABDOMEN AND PELVIS WITHOUT CONTRAST CLINICAL HISTORY: Hematuria, abdominal pain TECHNIQUE: Multiple contiguous axial images of the abdomen and pelvis without intravenous contrast. T he images were reformatted degenerate coronal and sagittal reconstructions. All CT scans at this medical facility are performed using dose modulation techniques as appropriate t o a performed exam including the following:Automated exposure control was utilized; adjustment of the MA and/or KV according to patient size; and use of iterative reconstruction technique. Radiation Dose Information: CT Dose: CTDI volume is 10.73 mGy. Dose-length product is 589.34 mGy*cm Comparison: CT CT AB PEL WO CON-NO ORAL OR IV on DOS: 02/02/24, CT CT AB PEL WO CON-NO ORAL OR IV on D OS: 08/15/23 FINDINGS: Evaluation of the abdomen and pelvis is limited without intravenous contrast. The liver, gallbladder, pancreas, kidneys, adrenal glands, and spleen appear within normal limits. There is no gross evidence of abdominal lymphadenopathy. There is no free fluid or free air. The stomach grossly appears unremarkable. The small and large bowel loops demonstrate normal caliber and distribution. A normal appearing appendix is seen in the right lower quadrant abdomen. The abdominal aorta and IVC appear within normal limits. The bladder appears unremarkable for the degree of distention. Uterus appears within normal limits.. There is no gross evidence of a pelvic mass. There is no free fluid collection. Lung bases are clear. There is no acute osseous abnormality. IMPRESSION: 1. There is no acute process in the abdomen and pelvis. HS:Y
[2025-01-13 14:08] LABS: Alanine Aminotransferase 14 U/L (7-40); Albumin 4.6 g/dL (3.2-4.8); Alkaline Phosphatase 93 U/L (46-116); Anion Gap 6 (5-15); BUN/Creatinine Ratio 11.8 (10.0-20.0); Blood Urea Nitrogen 10 mg/dL (9-23); Carbon Dioxide 28 mmol/L (20-31); Chloride 107 mmol/L (98-107); Sodium 141 mmol/L (136-145); Total Protein 7.4 g/dL (5.7-8.2)
[2025-01-13 14:09] LABS: Bilirubin, Total 0.4 mg/dL (0.2-1.0)
[2025-01-13 14:10] LABS: Aspartate Aminotransferase 9 U/L (13-40); Glucose 107 mg/dL (74-106); INR 0.97 (0.9-1.15); Partial Thromboplastin Time 27.9 SEC (24.5-34.5); Potassium 3.3 mmol/L (3.5-5.1); Prothrombin Time 10.3 sec (9.3-11.8)
[2025-01-13 15:00] LABS: Urine Blood Negative /uL (Negative); Urine Clarity Clear (Clear); Urine Color Colorless (Yellow); Urine Protein, UAD Negative (Negative); Urine Specific Gravity 1.008 (1.001-1.035); Urine Squamous Epithelial Cell FEW /hpf (<5); Urine Urobilinogen Normal (Negative); Urine WBC < 1 /HPF (0-5); Urine pH 5.5 (5.0-9.0)
[2025-01-13] MEDS ORDERED: NITR-87 PO (15:14)
[2025-01-13 15:42] VITALS: BP 136/85; PULSE 77; RESP 18; TEMP 98.3; O2SAT 100
== END 2025-01-13 15:44 | disposition home or self-care (01) ==
LOC: ER 13:15
DX: R31.9 Hematuria, unspecified (principal); N39.0 Urinary tract infection, site not specified; J45.909 Unspecified asthma, uncomplicated; E11.9 Type 2 diabetes mellitus without complications; I10 Essential (primary) hypertension; F17.210 Nicotine dependence, cigarettes, uncomplicated; Z87.11 Personal history of peptic ulcer disease; Z79.899 Other long term (current) drug therapy; Z88.1 Allergy status to other antibiotic agents; Z79.52 Long term (current) use of systemic steroids
CPT/HCPCS: 36415; 74176; 80053; 81001; 83605; 85025; 85610; 85730

== ENCOUNTER 2025-01-21 07:02 | Emergency (ER) | payer MEDICAID ==
[~2025-01-21] VITALS: Ht 165.1 cm; Wt 82.6 kg
--- NOTE | 2025-01-21 07:50 | ED.PDOC ---
General HPI Comments 49 year old female presents to the ED with a chief complaint of abdominal pain onset 9 days. Patient states she was seen at [facility] on 01/13/25, diagnosed with UTI and prescribed Macrobid, finished medication with no improvement of symptoms. For the past 9 days, patient has been experiencing abdominal pain, bilateral flank pain, back pain, vaginal pain described as stabbing sensation. PMHx COPD, HTN, GERD, asthma, Dm, PUD. Denies dysuria, hematuria, nausea, vomiting, diarrhea, fever, chills, chest pain, shortness of breath. No other symptoms or modifying factors present at this time. Chief Complaint: Abdominal Pain Time Seen by MD: 07:36 Primary Care Provider: unknown Reviewed notes: Medications, Allergies Allergies: Coded Allergies: Cephalexin (Verified Allergy, Mild, 01/13/25) Home Meds Active Scripts Nitrofurantoin Monohydrate Mac (Macrobid) 100 Mg Cap, 100 MG PO BID for 7 Days, #14 CAP Prov:CONOR NICKERSON DO 01/13/25 Alum & Mag Hydrox-Simethicone (Magic Mouthwash) 80 Ml Ss, 80 ML MT TID for 7 Days, #600 ML 0 Refills Prov:ALEX ALCALA NP 12/17/24 Nystatin (Mouth-Throat) (Mycostatin (Mouth-Throat)) 500,000 Units/5 Ml Ss, 5 ML MT QID for 10 Days, #200 ML 0 Refills Prov:ALEX ALCALA NP 12/17/24 Mouthwashes (Biotene Dry Mouth Mouthwa) Dry Mth Liq, 1 MTH MT UD for 3 Days, #200 LIQ 0 Refills Prov:ALEX ALCALA NP 12/17/24 Promethazine-Dm (Promethazine Dm 6.25-15 mg/5Ml) 1 Natalia Natalia, 5 ML PO TID, #160 ML Prov:KIMBERLI ESPINOSA 10/19/24 Cephalexin Monohydrate (Cephalexin) 500 Mg Cap, 1 CAP PO QID, #40 CAP Prov:KIMBERLI ESPINOSA 10/19/24 Pantoprazole Sodium Sesquihydr (Protonix) 40 Mg Tab, 40 MG PO DAILY for 10 Days, #10 TAB Prov:AMERICA EGAN MD 08/15/23 Ibuprofen Micronized (MOTRIN TABLET) 600 Mg Tb, 1 TAB PO TID PRN, #20 TAB as needed for pain Prov:CORRY JOALDA Q DATA COMMUNICATIONS SOFTWARE CONSULTANT 04/05/23 Amoxicillin & Pot Clavulanate (AUGMENTIN TABLET) 875 Mg Tb, 1 TAB PO BID for 10 Days, #20 TAB Prov:JO,NORALDA Q DATA COMMUNICATIONS SOFTWARE CONSULTANT 04/05/23 Nitrofurantoin Monohydrate Mac (Macrobid) 100 Mg Cap, 100 MG PO BID for 7 Days, #14 CAP Prov:BRISA JUDD CEMENTER MACHINE APPLICATOR 03/09/23 Promethazine-Dm (Promethazine Dm 6.25-15 mg/5Ml) 1 Natalia Natalia, 5 ML PO TID, #150 ML Prov:KIMBERLI ESPINOSA 07/28/22 Fluconazole (Diflucan) 150 Mg Tab, 150 MG PO DAILY, #1 TAB Prov:KIMBERLI ESPINOSA 07/28/22 Prednisone (Prednisone) 20 Mg Tab, 60 MG PO DAILY for 5 Days, #15 TAB Prov:KIMBERLI ESPINOSA 07/28/22 Sulfamethoxazole W/Trimethopri (Bactrim Ds Tablet) 1 Tab Tb, 1 TAB PO BID for 10 Days, #20 TAB Prov:KIMBERLI ESPINOSA 07/28/22 Acetaminophen (Acetaminophen) 500 Mg Tab, 500 MG PO QIDP, #30 TAB 0 Refills Prov:CAMILO MARIE 07/05/22 Information Source: Patient Mode of Arrival: Ambulatory Severity: Moderate Timing: Weeks Duration: Since onset Prehospital treatment: None Onset: Spontaneous Symptoms: Other (vaginal pain, flank pain) History of: UTI Location: Suprapubic, Abdomen, (R) Flank, (L)Flank Modifying factors: None associated signs and symptoms: Abdominal Pain, Flank Pain, Back Pain, Other Past Medical History PAST MEDICAL HISTORY: Asthma, COPD, DM, GERD, HTN, PUD Surgical History: CUSTODIAN BLOOD BANK History: Denies all CUSTODIAN BLOOD BANK Hx Family History Family History: Reviewed,noncontributory to illness, Family hx of DM, Family hx of heart ivanna Social History Smoker: Cigarettes, Less Than 1 Pack/Day Alcohol: Denies ETOH Use Drugs: Denies Drug Use Lives In: Home Constitutional: denies: chills, diaphoresis, fatigue, fever, malaise, sweats, weakness, others EENTM: denies: blurred vision, double vision, ear bleeding, ear discharge, ear drainage, ear pain, ear ringing, eye pain, eye redness, hearing loss, mouth pain, mouth swelling, nasal discharge, nose bleeding, nose congestion, nose pain, photophobia, tearing, throat pain, throat swelling, voice changes, others Respiratory: denies: cough, hemoptysis, orthopnea, SOB at rest, shortness of breath, SOB with excertion, stridor, wheezing, others Cardiovascular: denies: chest pain, dizzy spells, diaphoresis, Dyspnea on exertion, edema, irregular heart beat, left arm pain, lightheadedness, palpitations, PND, syncope, others Gastrointestinal: reports: abdominal pain; denies: abdomen distended, blood streaked bowels, constipated, diarrhea, dysphagia, difficulty swallowing, hematemesis, melena, nausea, poor appetite, poor fluid intake, rectal bleeding, rectal pain, vomiting, others Genitourinary: reports: flank pain, others (vaginal discomfort); denies: abnormal vagina bleeding, burning, dyspareunia, dysuria, frequency, hematuria, incontinence, pain, , vagina discharge, urgency Neurological: denies: dizziness, fainting, headache, left sided numbness, left sided weakness, numbness, paresthesia, pre-existing deficit, right sided numbness, right sided weakness, seizure, speech problems, tingling, tremors, weakness, others Musculoskeletal: reports: back pain; denies: gout, joint pain, joint swelling, muscle pain, muscle stiffness, neck pain, others Integumetry: denies: bruises, change in color, change in hair/nails, dryness, laceration, lesions, lumps, rash, wounds, others Allergic/Immunocompromised: denies: Difficulty Healing, Frequent Infections, Hives, Itching, others Hematologic/Lymphatic: denies: anemia, blood clots, easy bleeding, easy bruising, swollen glands, others Endocrine: denies: excessive hunger, excessive sweating, excessive thirst, excessive urination, flushing, intolerance to cold, intolerance to heat, unexplained weight gain, unexplained weight loss, others Psychiatric: denies: anxiety, bipolar disorder, depression, hopeless, panic disorder, schizophrenia, sleepless, suicidal, others All Other Systems: Reviewed and Negative Physical Exam General Appearance: No Apparent Distress, Normal HEENT: Normal ENT Inspection, Pharynx Normal, TMs Normal Neck: Full Range of Motion, Non-Tender, Normal, Normal Inspection Respiratory: Chest Non-Tender, Lungs Clear, No Accessory Muscle Use, No Re spiratory Distress, Normal Breath Sounds Cardiovascular: No Edema, No JVD, No Murmur, No Gallop, Normal Peripheral Pulses, Regular Rate/Rhythm Breast Exam: Deferred Gastrointestinal: No Organomegaly, Non Tender, No Pulsatile Mass, Normal Bowel Sounds, Soft Genitalia: Deferred Pelvic: Deferred Rectal: Deferred Extremities: No calf tenderness, Normal capillary refill, Normal inspection, Normal range of motion, Non-tender, No pedal edema Musculoskeletal : Apperance: Normal Neurologic: Alert, communications coordinator II-XII nml as Tested, No Motor Deficits, Normal Affect, Normal Mood, No Sensory Deficits Cerebellar Function: Normal Reflexes: Normal Skin: Dry, Normal Color, Warm Lymphatic: No Adenopathy Was a procedure done? Was a procedure done?: No Differential Diagnosis Kidney stone (Female): N/A Kidney stone (Male): N/A Penile/Scrotal: N/A Urinary Problem (Male): N/A Urinary Problem (Female): Impaction, Intrauterine , PID, Post-op complication, Pyelonephritis, Urinary retention, Urolithiasis, UTI X-Ray, Labs, Meds, VS Vital Signs Date Time Temp Pulse Resp B/P (MAP) Pulse Ox O2 Delivery O2 Flow Rate FiO2 01/21/25 09:25 74 18 97 Room Air* 0 21 01/21/25 09:25 98.4 74 18 116/80 (92) 97 98.4 01/21/25 07:25 98.3 73 17 120/72 (88) 98 98.3 Lab Test 01/21/25 08:14 01/21/25 07:22 Range/Units White Blood Count 8.2 4.4-10.8 10^3/uL Red Blood Count 4.45 4.0-5.20 10^6/uL Hemoglobin 13.8 12.2-16.2 g/dL Hematocrit 40.5 36.0-46.0 % Mean Corpuscular Volume 91.0 80.0-100.0 fL Mean Corpuscular Hemoglobin 30.9 28.0-32.0 pg Mean Corpuscular Hemoglobin Concent 34.0 32.0-36.0 g/dL Red Cell Distribution Width 14.1 11.8-14.3 % Platelet Count 221 140-450 10^3/uL Mean Platelet Volume 9.3 6.9-10.8 fL Neutrophils (%) (Auto) 64.6 37.0-80.0 % Lymphocytes (%) (Auto) 27.8 10.0-50.0 % Monocytes (%) (Auto) 5.7 0.0-12.0 % Eosinophils (%) (Auto) 1.3 0.0-7.0 % Basophils (%) (Auto) 0.6 0.0-2.0 % Neutrophils # (Auto) 5.3 1.6-8.6 10 ^3/uL Lymphocytes # (Auto) 2.3 0.4-5.4 10 ^3/uL Monocytes # (Auto) 0.5 0-1.3 10 ^3/uL Eosinophils # (Auto) 0.1 0-0.8 10 ^3/uL Basophils # (Auto) 0.1 0-0.2 10 ^3/uL Nucleated Red Blood Cells 0.0 % Sodium Level 139 136-145 mmol/L Potassium Level 3.7 3.5-5.1 mmol/L Chloride Level 105 98-107 mmol/L Carbon Dioxide Level 29 20-31 mmol/L Anion Gap 5 5-15 Blood Urea Nitrogen 10 9-23 mg/dL Creatinine 0.86 0.550-1.02 mg/dL Glomerular Filtration Rate Calc 84 >90 mL/min BUN/Creatinine Ratio 11.6 10.0-20.0 Serum Glucose 123 H 74-106 mg/dL Lactic Acid Level 1.0 0.4-2.0 mmol/L Calcium Level 9.9 8.7-10.4 mg/dL Urine Color Yellow Yellow Urine Clarity Turbid H Clear Urine pH 5.5 5.0-9.0 Urine Specific [place] 1.021 1.001-1.035 Urine Protein Negative Negative Urine Ketones Negative Negative Urine Blood Negative Negative /uL Urine Nitrite Negative Negative Urine Bilirubin Negative Negative Urine Urobilinogen Normal Negative mg/dL Urine Leukocyte Esterase Negative Negative /uL Urine RBC 1 0 - 4 /hpf Urine Microscopic WBC 2 0-5 /HPF Urine Squamous Epithelial Cells Few <5 /hpf Urine Bacteria Few H None Seen /hpf Urine Glucose Normal Normal mg/dL Time of 1ST Reevaluation: 08:06 Reevaluation 1ST: Unchanged Patient Education/Counseling: Diagnosis, Treatment, Prognosis Family Education/Counseling: No Family Present Additional Information The following tests were ordered, and results were reviewed by me: BMP, CBC, UA, LA W/ REFLEX, BLOOD CULTURE, UA I discussed treatment and results with medical personnel and: Patient Comprehensive systems review obtained and negative except for what is stated in the HPI. Departure 1 Departure Time of Disposition: 11:48 (Patient presented with abdominal pain that was concerning for possible appendicits, gastritis, cholecystitis, colitis, gastroenteritis, or orther possible surgical emergency. Data: 1. I ordered and reviewed the result of at least 3 labs including a CBC, BMP, and Urinalysis. 2. I independently interpreted the following tests: CT Abdoment and Pelvis is concerning for benign abdomen .Risk:This patient has a high risk of morbidity due to further diagnostic testing or treatment and may suffer from an acute abdominal process disorder. Fortunately workup reveals benign abdomen and patient can be safely discharged to home with outpatient follow up.) Impression: Primary Impression: Bilateral flank pain Disposition: 01 HOME / SELF CARE / HOMELESS Condition: Stable Referrals: JERSEY FLOYD MD Additional Instructions: Your workup today was benign. You were referred to Gastroenterology for further workup. Please call for an appointment For pain you can take the followinam: Ibuprofen 400mg with food Noon: Acetaminophen 1000mg 4pm: Ibuprofen 400mg with food 8pm: Acetaminophen 1000mg You should follow up with your regular doctor within one week to ensure you are doing better. If your symptoms worsen or you have any other concerns then please return to the ER. Critical Care Note Critical Care Time?: No Stability Stability form required: No I personally scribed for YRIS RAMSEY MD ([email or web address]) on 01/21/25 at 07:50. Electronically submitted by Leandra Cagle ([email or web address]). I personally scribed for YRIS RAMSEY MD ([email or web address]) on 01/21/25 at 08:08. Electronically submitted by Leandra Cagle ([email or web address]). YRIS RAMSEY MD Jan 21, 2025 07:50
[2025-01-21 07:58] LABS: Urine Bacteria FEW /hpf (None Seen); Urine Blood Negative /uL (Negative); Urine Clarity Turbid (Clear); Urine Color Yellow (Yellow); Urine Protein, UAD Negative (Negative); Urine Specific Gravity 1.021 (1.001-1.035); Urine Squamous Epithelial Cell FEW /hpf (<5); Urine Urobilinogen Normal (Negative); Urine WBC 2 /HPF (0-5); Urine pH 5.5 (5.0-9.0)
[2025-01-21 08:40] LABS: Basophils # (auto) 0.1 10 ^3/uL (0-0.2); Basophils % (auto) 0.6 % (0.0-2.0); Eosinophils # (auto) 0.1 10 ^3/uL (0-0.8); Eosinophils % (auto) 1.3 % (0.0-7.0); Hematocrit 40.5 % (36.0-46.0); Hemoglobin 13.8 g/dL (12.2-16.2); Lymphocytes # (auto) 2.3 10 ^3/uL (0.4-5.4); Lymphocytes % (auto) 27.8 % (10.0-50.0); Mean Corpuscular Hemoglobin 30.9 pg (28.0-32.0); Monocytes # (auto) 0.5 10 ^3/uL (0-1.3); Monocytes % (auto) 5.7 % (0.0-12.0); Neutrophils # (auto) 5.3 10 ^3/uL (1.6-8.6); Neutrophils % (auto) 64.6 % (37.0-80.0); Platelet Count (auto) 221 10^3/uL (140-450); Red Blood Cells 4.45 10^6/uL (4.0-5.20); Red Cell Distribution Width 14.1 % (11.8-14.3); White Blood Cell 8.2 10^3/uL (4.4-10.8)
[2025-01-21 08:47] LABS: Chloride 105 mmol/L (98-107); Potassium 3.7 mmol/L (3.5-5.1); Sodium 139 mmol/L (136-145)
[2025-01-21 08:48] LABS: Anion Gap 5 (5-15); Calcium 9.9 mg/dL (8.7-10.4); Carbon Dioxide 29 mmol/L (20-31)
[2025-01-21 08:53] LABS: BUN/Creatinine Ratio 11.6 (10.0-20.0); Blood Urea Nitrogen 10 mg/dL (9-23)
[2025-01-21 08:55] LABS: Glucose 123 mg/dL (74-106)
[2025-01-21 09:25] VITALS: PULSE 74; RESP 18; O2SAT 97
[2025-01-21] MEDS ORDERED: SODIUM CHLORIDE 0.9% 1,000 ML IV ONE (09:45)
[2025-01-21] MEDS ORDERED: ONDANSETRON HCL 4 MG/2 ML VIAL IV ONE (09:45)
[2025-01-21] MEDS ORDERED: MORPHINE SULFATE 4 MG/ML SYR/VIAL IV ONE (09:45)
[2025-01-21] MEDS: IOHEXOL 300 MG/ML 100ML BOTTLE IJ ONE (09:56)
[2025-01-21] MEDS: HYDROcodone-ACET 5/325MG TAB PO ONE (09:56)
--- NOTE | 2025-01-21 10:29 | DVH ---
Exam: CT CT AB PEL WITH IV CON ONLY History: bilateral flank pain TECHNIQUE: Multiple contiguous axial CT images of the abdomen and pelvis were obtained with intraveno us contrast. The images were reformatted to generate coronal and sagittal reconstructions. 100 cc of Omnipaque 350 contrast was injected intravenously. All CT scans at this medical facility are performed using dose modulation techniques as appropriate t o a performed exam including the following:Automated exposure control was utilized; adjustment of the MA and/or KV according to patient size; and use of iterative reconstruction technique. Radiation Dose Information: CT Dose: CTDI volume is 17 mGy. Dose-length product is 882 mGy*cm Comparison: 02/02/2024 FINDINGS: There is no evidence of nephrolithiasis or hydronephrosis. There is no evidence of a ureteral calculu s or hydroureter. The liver, gallbladder, pancreas, adrenal glands, and spleen appear within normal limits. There is no evidence of abdominal lymphadenopathy. There is no free fluid or free air. The stomach grossly appears unremarkable. The small and large bowel loops demonstrate normal caliber and distribution. A normal appearing appendix is seen in the right lower quadrant abdomen. The abdominal aorta and IVC appear within normal limits. The bladder appears within normal limits the degree of distention. Pelvic organs is unremarkable. The re is no evidence of a pelvic mass or lymphadenopathy. There is no free fluid collection. Lung bases are clear. There is no acute osseous abnormality. IMPRESSION: 1. There is no acute process in the abdomen and pelvis.. HS:Y
[2025-01-21 11:59] VITALS: BP 122/73; PULSE 69; RESP 20; TEMP 98; O2SAT 95
[2025-01-21] MEDS ORDERED: DICYCLOMINE HCL 10 MG CAP PO ONE (12:00)
== END 2025-01-21 12:53 | disposition home or self-care (01) ==
LOC: ER 07:02
DX: R10.9 Unspecified abdominal pain (principal); I10 Essential (primary) hypertension; E11.9 Type 2 diabetes mellitus without complications; J44.89 Other specified chronic obstructive pulmonary disease; F17.210 Nicotine dependence, cigarettes, uncomplicated; Z79.899 Other long term (current) drug therapy; Z98.890 Other specified postprocedural states; Z88.1 Allergy status to other antibiotic agents
CPT/HCPCS: 36415; 74177; 80048; 81001; 83605; 85025; 87040; 99285; Q9967

== ENCOUNTER 2025-03-12 21:33 | Emergency (ER) | payer MEDICAID ==
[~2025-03-12] VITALS: Ht 505.5 cm; Wt 82.0 kg
--- NOTE | 2025-03-12 22:36 | DVH ---
CHEST RADIOGRAPH Indication: cough Technique: Single frontal view of the chest was obtained COMPARISON: XY CHEST PORTABLE on DOS: 02/02/24 FINDINGS: Lines and Tubes: None Lungs: No evidence of pulmonary infiltrates or edema. Pleura: No effusion. No pneumothorax. Cardiomediastinal contours: Unremarkable Bones: Unremarkable IMPRESSION: No acute disease. No significant change compared to the prior chest x-ray from January 2024.
[2025-03-12 23:37] VITALS: BP 106/79; PULSE 109; RESP 16; TEMP 98.6; O2SAT 95
[2025-03-12] MEDS ORDERED: ALBUAER3 IN (23:58)
[2025-03-12] MEDS ORDERED: PRED20TA2 PO (23:58)
[2025-03-12] MEDS ORDERED: AZIT-43 PO (23:58)
--- NOTE | 2025-03-12 23:58 | ED.PDOC ---
SOB-HPI HPI Comments 49-year-old female presents to ER with complaints of cough x1 week. Patient with PMH significant for COPD and Asthma reports she has been experiencing a dry cough and congestion x1 week. Denies any pain. Reports that she has been using her albuterol inhaler without relief. Patient presents to ER ambulatory on arrival, with steady gait, in no distress. Denies fever, body aches, chills, sore throat, headache, shortness of breath, hemoptysis, chest pain or any further symptoms/complaints Chief Complaint: Cough Time Seen by MD: 22:05 Primary Care Provider: unknown Reviewed notes: Nurses Notes, Medications, Allergies Information Source: Patient Mode of Arrival: Ambulatory Past Medical History PAST MEDICAL HISTORY: Asthma, COPD, DM, GERD, HTN, PUD Surgical History: WOOD ROOM HAND History: Denies all WOOD ROOM HAND Hx Family History Family History: Family hx of DM, Family hx of heart ivanna Social History Smoker: Cigarettes, Less Than 1 Pack/Day Alcohol: Denies ETOH Use Drugs: Denies Drug Use Lives In: Home Constitutional: denies: chills, diaphoresis, fatigue, fever, malaise, sweats, weakness, others EENTM: reports: others (As stated in HPI) Respiratory: reports: others (As stated in HPI) Cardiovascular: denies: chest pain, dizzy spells, diaphoresis, Dyspnea on exertion, edema, irregular heart beat, left arm pain, lightheadedness, palpitations, PND, syncope, others Gastrointestinal: denies: abdomen distended, abdominal pain, blood streaked bowels, constipated, diarrhea, dysphagia, difficulty swallowing, hematemesis, melena, nausea, poor appetite, poor fluid intake, rectal bleeding, rectal pain, vomiting, others Genitourinary: denies: abnormal vagina bleeding, burning, dyspareunia, dysuria, flank pain, frequency, hematuria, incontinence, pain, , vagina discharge, urgency, others Neurological: denies: dizziness, fainting, headache, left sided numbness, left sided weakness, numbness, paresthesia, pre-existing deficit, right sided numbness, right sided weakness, seizure, speech problems, tingling, tremors, weakness, others Musculoskeletal: denies: back pain, gout, joint pain, joint swelling, muscle pain, muscle stiffness, neck pain, others Integumetry: denies: bruises, change in color, change in hair/nails, dryness, laceration, lesions, lumps, rash, wounds, others Allergic/Immunocompromised: denies: Difficulty Healing, Frequent Infections, Hives, Itching, others Hematologic/Lymphatic: denies: anemia, blood clots, easy bleeding, easy bruising, swollen glands, others Endocrine: denies: excessive hunger, excessive sweating, excessive thirst, excessive urination, flushing, intolerance to cold, intolerance to heat, unexplained weight gain, unexplained weight loss, others Psychiatric: denies: anxiety, bipolar disorder, depression, hopeless, panic disorder, schizophrenia, sleepless, suicidal, others Physical Exam General Appearance: No Apparent Distress HEENT: Normal ENT Inspection, PERRL/EOMI, Pharynx Normal, TMs Normal Neck: Full Range of Motion, Non-Tender, Normal Respiratory: Chest Non-Tender, Lungs Clear, No Accessory Muscle Use, No Respiratory Distress, Normal Breath Sounds Cardiovascular: No Murmur, No Gallop, Regular Rate/Rhythm Breast Exam: Deferred Gastrointestinal: NOT DONE Genitalia: Deferred Pelvic: Deferred Rectal: Deferred Extremities: Normal capillary refill, Normal range of motion Neurologic: Alert, manager biostatistics II-XII nml as Tested, No Motor Deficits, Normal Affect, Normal Mood, No Sensory Deficits Cerebellar Function: Normal Reflexes: Normal Skin: Dry, Normal Color, Warm Peripheral Pulses: 2+ Radial (R), 2+ Radial (L), 2+ Brachial (R), 2+ Brachial (L) Lymphatic: No Adenopathy Was a procedure done? Was a procedure done?: No Sedation Sedation?: No Differential Dx Differential Diagnosis: Pneumonia, Pulmonary Embolism, Respiratory Distress, Pharyngitis X-Ray, Labs, Meds, VS Vital Signs Date Time Temp Pulse Resp B/P (MAP) Pulse Ox O2 Delivery O2 Flow Rate FiO2 03/12/25 23:37 98.6 109 16 106/79 (88) 95 98.6 03/12/25 23:37 95 Room Air* 0 21 03/12/25 22:01 98.6 109 16 106/79 (88) 95 98.6 PATIENT: BREANA PEREZVICTOR MANUELCCT: [id number]: [id number] : 1975 LOC: ER ROOM / BED: / AGE / SEX: 49 / F ADM STATUS: REG ER SERVICE 05 ORDERING PHYSICIAN: CAMILO MARIE PROCEDURE(s): CXR1 - CHEST XRAY 1 VIEW REASON: cough ORDER NUMBER(s): [id number], ACCESSION NUMBER(s): [id number] CHEST RADIOGRAPH Indication: cough Technique: Single frontal view of the chest was obtained COMPARISON: XY CHEST PORTABLE on DOS: 02/02/24 FINDINGS: Lines and Tubes: None Lungs: No evidence of pulmonary infiltrates or edema. Pleura: No effusion. No pneumothorax. Cardiomediastinal contours: Unremarkable Bones: Unremarkable IMPRESSION: No acute disease. No significant change compared to the prior chest x-ray from January 2024. ATED BY: SPEEDY VENTURA MD DICTATED DATE/TIME: 03/12/252232 SIGNED BY: SPEEDY VENTURA MD SIGNED DATE/TIME: 03/12/252232 CC: Chest x-ray reviewed Patient in no distress during ER visit/prior to discharge Advised to drink plenty of fluids Smoking cessation discussed and advised Advised to follow up with PCP in 1-2 days Patient verbalized understanding and agreeable with current plan of care Advised to return to ER immediately if symptoms worsen Images Reviewed?: Images reviewed and evaluated by me Time of 1ST Reevaluation: 23:24 Reevaluation 1ST: N/A Patient Education/Counseling: Diagnosis, Treatment, Prognosis, Need For Follow Up Family Education/Counseling: Diagnosis, Treatment, Prognosis, Need For Follow Up Departure 1 Departure Time of Disposition: 23:52 Impression: Primary Impression: Upper respiratory infection Qualified Codes: J06.9 - Acute upper respiratory infection, unspecified Disposition: HOME / SELF CARE / HOMELESS Condition: Stable e-Prescriptions Albuterol Sulfate (VENTOLIN MDI) 90 Mcg Ih 2 PUFF IN Q6HPRN, #1 INH 0 Refills Prov: CAMILO MARIE 03/12/25 Prednisone (Prednisone) 20 Mg Tab 20 MG PO BID for 5 Days, #10 TAB 0 Refills Prov: CAMILO MARIE 03/12/25 Azithromycin (Azithromycin) 250 Mg Tab 250 MG PO DAILY MDD 500 for 5 Days, #6 TAB 0 Refills 2 TABLETS ORALLY ON DAY ONE, THEN 1 TABLET ORALLY DAILY FOR 4 DAYS Prov: CAMILO MARIE 03/12/25 Discharged With: Self Critical Care Note Critical Care Time?: No Stability Stability form required: No Heart Score Heart Score: Heart Score Response (Comments) Value History N/A 0 EKG N/A 0 Age N/A 0 Risk Factors N/A 0 Troponin N/A 0 Total 0 CAMILO MARIE March 12, 2025 23:58
== END 2025-03-13 00:04 | disposition home or self-care (01) ==
LOC: ER 21:33
DX: J06.9 Acute upper respiratory infection, unspecified (principal); F17.210 Nicotine dependence, cigarettes, uncomplicated; E11.9 Type 2 diabetes mellitus without complications; I10 Essential (primary) hypertension
CPT/HCPCS: 71045

== ENCOUNTER 2025-05-08 22:29 | Emergency (ER) | payer MEDICAID ==
[~2025-05-08] VITALS: Ht 165.1 cm; Wt 80.9 kg
[~2025-05-08 22:29] MED LIST changes: +ALBUAER3 IN; +AZIT-43 PO
[2025-05-08] MEDS: KETOROLAC TROMETH 60MG/2ML VIAL IM ONE (23:27)
--- NOTE | 2025-05-09 00:09 | DVH ---
Exam: CT CT AB PEL WO CON-NO ORAL OR IV History: Bilateral flank pain Comparison Study: CT CT AB PEL WO CON-NO ORAL OR IV on DOS: 01/13/25, CT CT AB PEL WO CON-NO ORAL OR I V on DOS: 02/02/24, CT CT AB PEL WO CON-NO ORAL OR IV on DOS: 08/15/23, CT CT AB PEL WO CON-NO ORAL OR IV on DOS: 03/09/23 Technique: Multidetector spiral CT of the abdomen was performed from lung bases to pubic symphysis. I maging was performed without IV contrast. Axial, coronal and sagittal multiplanar reformats were obta ined from the axial data set by the technologist. Radiation Dose : 1. Abdomen/Pelvis: CTDIvol 11.48 mGy, DLP 681.64 mGy*cm. Findings: Evaluation of solid organs is limited due to lack of intravenous contrast use. Lung Bases: No acute or significant lung base finding. Small fat containing Bochdalek type hernia wit hin the posterior right lung base. Normal heart size. No pleural or pericardial effusion. Liver: The liver is normal in size. No focal lesions. Gallbladder and Biliary Tree: Unremarkable Spleen: Unremarkable Pancreas: The pancreas is grossly normal in appearance. Adrenal Glands: Unremarkable Kidneys: Kidneys are grossly normal without calculi or hydronephrosis. Bladder: Grossly unremarkable for degree of distention. Bowel: The stomach is grossly normal in appearance. Small bowel and colon are normal in caliber and d istribution. The appendix is normal. Ascites: Absent Lymphadenopathy: No mesenteric, retroperitoneal or periportal lymphadenopathy. Abdominal Wall and Mesentery: Unremarkable. Vasculature: The visualized abdominal aorta is normal in size and caliber. Atherosclerotic vascular c alcifications. Evaluation of abdominal and pelvic vessels is limited due to lack of intravenous cont rast. Pelvic Organs: Unremarkable Musculoskeletal: No aggressive focal bony lesions, acute fractures or dislocation. IMPRESSION: 1. No acute abdominal or pelvic findings. Radiation optimization: All CT scans at this facility use at least one of these dose optimization [place] hniques: automated exposure control mA and/or kV adjustment per patient size (includes targeted exam s where dose is matched to clinical indication) or iterative reconstruction.
[2025-05-09 00:26] LABS: Urine Protein, UAD Negative (Negative)
[2025-05-09] MEDS ORDERED: ACET500T58 PO (00:44)
[2025-05-09] MEDS ORDERED: IBUP-1455 PO (00:44)
[2025-05-09] MEDS ORDERED: PHEN-1044 PO (00:44)
--- NOTE | 2025-05-09 00:45 | ED.PDOC ---
General HPI Comments This is a 49-year-old morbidly obese female who arrives to the ED today with complaints of bilateral flank pain with urinary discomfort the past three days. Patient states the symptoms came on and have ebbed and flowed since arrival. Patient denies any fever nausea or vomiting. Patient denies any traumatic events. Vital signs were stable at arrival. Chief Complaint: Flank Pain Time Seen by MD: 22:35 Primary Care Provider: unknown Reviewed notes: Nurses Notes Allergies: Coded Allergies: Cephalexin (Verified Allergy, Mild, 01/13/25) Home Meds Active Scripts Albuterol Sulfate (VENTOLIN MDI) 90 Mcg Ih, 2 PUFF IN Q6HPRN, #1 INH 0 Refills Prov:CAMILO MARIE 03/12/25 Prednisone (Prednisone) 20 Mg Tab, 20 MG PO BID for 5 Days, #10 TAB 0 Refills Prov:CAMILO MARIE 03/12/25 Azithromycin (Azithromycin) 250 Mg Tab, 250 MG PO DAILY MDD 500 for 5 Days, #6 TAB 0 Refills 2 TABLETS ORALLY ON DAY ONE, THEN 1 TABLET ORALLY DAILY FOR 4 DAYS Prov:CAMILO MARIE 03/12/25 Nitrofurantoin Monohydrate Mac (Macrobid) 100 Mg Cap, 100 MG PO BID for 7 Days, #14 CAP Prov:CONOR NICKERSON DO 01/13/25 Alum & Mag Hydrox-Simethicone (Magic Mouthwash) 80 Ml Ss, 80 ML MT TID for 7 Days, #600 ML 0 Refills Prov:ALEX ALCALA NP 12/17/24 Nystatin (Mouth-Throat) (Mycostatin (Mouth-Throat)) 500,000 Units/5 Ml Ss, 5 ML MT QID for 10 Days, #200 ML 0 Refills Prov:ALEX ALCALA NP 12/17/24 Mouthwashes (Biotene Dry Mouth Mouthwa) Dry Mth Liq, 1 MTH MT UD for 3 Days, #200 LIQ 0 Refills Prov:ALEX ALCALA NP 12/17/24 Promethazine-Dm (Promethazine Dm 6.25-15 mg/5Ml) 1 Natalia Natalia, 5 ML PO TID, #160 ML Prov:KIMBERLI ESPINOSA 10/19/24 Cephalexin Monohydrate (Cephalexin) 500 Mg Cap, 1 CAP PO QID, #40 CAP Prov:KIMBERLI ESPINOSA 10/19/24 Pantoprazole Sodium Sesquihydr (Protonix) 40 Mg Tab, 40 MG PO DAILY for 10 Days, #10 TAB Prov:AMERICA EGAN MD 08/15/23 Ibuprofen Micronized (MOTRIN TABLET) 600 Mg Tb, 1 TAB PO TID PRN, #20 TAB as needed for pain Prov:CORRY JOALDA Q GOLDBEATER 04/05/23 Amoxicillin & Pot Clavulanate (AUGMENTIN TABLET) 875 Mg Tb, 1 TAB PO BID for 10 Days, #20 TAB Prov:CORRY JOALDA Q GOLDBEATER 04/05/23 Nitrofurantoin Monohydrate Mac (Macrobid) 100 Mg Cap, 100 MG PO BID for 7 Days, #14 CAP Prov:BRISA JUDD DOUGH PANNER 03/09/23 Promethazine-Dm (Promethazine Dm 6.25-15 mg/5Ml) 1 Natalia Natalia, 5 ML PO TID, #150 ML Prov:IKMBERLI ESPINOSA 07/28/22 Fluconazole (Diflucan) 150 Mg Tab, 150 MG PO DAILY, #1 TAB Prov:KIMBERLI ESPINOSA 07/28/22 Prednisone (Prednisone) 20 Mg Tab, 60 MG PO DAILY for 5 Days, #15 TAB Prov:KIMBERLI ESPINOSA 07/28/22 Sulfamethoxazole W/Trimethopri (Bactrim Ds Tablet) 1 Tab Tb, 1 TAB PO BID for 10 Days, #20 TAB Prov:KIMBERLI ESPINOSA 07/28/22 Acetaminophen (Acetaminophen) 500 Mg Tab, 500 MG PO QIDP, #30 TAB 0 Refills Prov:CAMILO MARIE 07/05/22 Information Source: Patient Mode of Arrival: Ambulatory Severity: Moderate Timing: Days Duration: Intermittent Prehospital treatment: None Onset: Spontaneous Symptoms: Dysuria History of: None Location: Abdomen, (R) Flank, (L)Flank Modifying factors: None associated signs and symptoms: Dysuria Past Medical History PAST MEDICAL HISTORY: Asthma, COPD, DM, GERD, HTN, PUD Surgical History: CULINARY ARTIST History: Denies all CULINARY ARTIST Hx Family History Family History: Family hx of DM, Family hx of heart ivanna Social History Smoker: Cigarettes, Less Than 1 Pack/Day Alcohol: Denies ETOH Use Drugs: Denies Drug Use Lives In: Home Constitutional: denies: chills, diaphoresis, fatigue, fever, malaise, sweats, weakness, others EENTM: denies: blurred vision, double vision, ear bleeding, ear discharge, ear drainage, ear pain, ear ringing, eye pain, eye redness, hearing loss, mouth pain, mouth swelling, nasal discharge, nose bleeding, nose congestion, nose pain, photophobia, tearing, throat pain, throat swelling, voice changes, others Respiratory: denies: cough, hemoptysis, orthopnea, SOB at rest, shortness of breath, SOB with excertion, stridor, wheezing, others Cardiovascular: denies: chest pain, dizzy spells, diaphoresis, Dyspnea on exertion, edema, irregular heart beat, left arm pain, lightheadedness, palpitations, PND, syncope, others Gastrointestinal: denies: abdomen distended, abdominal pain, blood streaked bowels, constipated, diarrhea, dysphagia, difficulty swallowing, hematemesis, melena, nausea, poor appetite, poor fluid intake, rectal bleeding, rectal pain, vomiting, others Genitourinary: reports: dysuria, flank pain; denies: abnormal vagina bleeding, burning, dyspareunia, frequency, hematuria, incontinence, pain, , vagina discharge, urgency, others Neurological: denies: dizziness, fainting, headache, left sided numbness, left sided weakness, numbness, paresthesia, pre-existing deficit, right sided numbness, right sided weakness, seizure, speech problems, tingling, tremors, weakness, others Musculoskeletal: denies: back pain, gout, joint pain, joint swelling, muscle pain, muscle stiffness, neck pain, others Integumetry: denies: bruises, change in color, change in hair/nails, dryness, laceration, lesions, lumps, rash, wounds, others Allergic/Immunocompromised: denies: Difficulty Healing, Frequent Infections, Hives, Itching, others Hematologic/Lymphatic: denies: anemia, blood clots, easy bleeding, easy bruising, swollen glands, others Endocrine: denies: excessive hunger, excessive sweating, excessive thirst, excessive urination, flushing, intolerance to cold, intolerance to heat, unexplained weight gain, unexplained weight loss, others Psychiatric: denies: anxiety, bipolar disorder, depression, hopeless, panic disorder, schizophrenia, sleepless, suicidal, others Physical Exam General Appearance: Moderate Distress ([id number] distress due to flank pain concerns), Obese HEENT: Normal ENT Inspection, Pharynx Normal, TMs Normal Neck: Full Range of Motion, Non-Tender, Normal, Normal Inspection Respiratory: Chest Non-Tender, Lungs Clear, No Accessory Muscle Use, No Respiratory Distress, Normal Breath Sounds Cardiovascular: No Edema, No JVD, No Murmur, No Gallop, Normal Peripheral Pulses, Regular Rate/Rhythm Breast Exam: Deferred Gastrointestinal: Other (Tenderness to palpation through bilateral CVA regions without definitive CVA tenderness. No signs of trauma. No edema or ecchymosis.) Genitalia: Deferred Pelvic: Deferred Rectal: Deferred Extremities: No calf tenderness, Normal capillary refill, Normal inspection, Normal range of motion, Non-tender, No pedal edema Neurologic: Alert, No Motor Deficits, Normal Affect, Normal Mood, No Sensory Deficits Cerebellar Function: Normal Reflexes: Normal Skin: Dry, Normal Color, Warm Lymphatic: No Adenopathy Was a procedure done? Was a procedure done?: No Differential Diagnosis Kidney stone (Female): Other (Kidney stone, UTI, pyelonephritis, musculoskeletal concerns) X-Ray, Labs, Meds, VS Vital Signs Date Time Temp Pulse Resp B/P (MAP) Pulse Ox O2 Delivery O2 Flow Rate FiO2 05/08/25 22:40 98.7 101 18 126/99 (108) 100 98.7 Lab Test 05/08/25 22:51 Range/Units Urine Color Dark-orange Yellow Urine Clarity Clear Clear Urine pH 5.5 5.0-9.0 Urine Specific [place] 1.013 1.001-1.035 Urine Protein Negative Negative Urine Ketones Negative Negative Urine Blood Negative Negative /uL Urine Nitrite 1+ H Negative Urine Bilirubin Negative Negative Urine Urobilinogen 3 H Negative mg/dL Urine Leukocyte Esterase Negative Negative /uL Urine RBC None seen 0 - 4 /hpf Urine Microscopic WBC 1 0-5 /HPF Urine Squamous Epithelial Cells Few <5 /hpf Urine Bacteria Mod H None Seen /hpf Urine Glucose Normal Normal mg/dL Current Medications Medications (Trade) Dose Ordered Sig/[place] Route Start Time Stop Time Status Last Admin Ketorolac Tromethamine (Toradol Injection) 30 mg ONCE ONCE IM 05/08/25 23:00 05/08/25 23:01 DC 05/08/25 23:27 X-Ray, Labs, Meds, VS Comment All studies performed the ED were evaluated by me personally. Urinalysis was relatively unremarkable for any UTI formation. CT of the abdomen and pelvis was unremarkable for any kidney involvement or intra-abdominal concerns. Patient will be sent home with some Pyridium to aid her in urinary discomfort, but patient has been advised to follow up with the primary care provider for possible Urology referral and evaluation. Time of 1ST Reevaluation: 00:42 Reevaluation 1ST: Improved Consultation: PCP Patient Education/Counseling: Diagnosis, Treatment Family Education/Counseling: Diagnosis, Treatment SEPSIS Sepsis Screen Date sepsis recognized/suspect: May 08, 2025 Time Sepsis recognized/suspect: 2239 Recent Procedure: No On Antibiotic Therapy: No Respiratory Rate >20: No Heart Rate >90: No Temp<36 C (96.8 F) or >38.3 C: No SBP <90 or MAP <65 mmHG: No New Acute Mental Status Change: No Is the patient on CPAP, BIPAP,: No Physician Orders Ct Ab Pel Wo Con-No Oral Or Iv (05/08/25 22:55) Vital Signs Date Time Temp Pulse Resp B/P (MAP) Pulse Ox O2 Delivery O2 Flow Rate FiO2 05/08/25 22:40 98.7 101 18 126/99 (108) 100 98.7 Medications Medications Dose Ordered Sig/[place] Route Start Time Stop Time Status Last Admin Dose Admin Ketorolac Tromethamine 30 mg ONCE ONCE IM 05/08/25 23:00 05/08/25 23:01 DC 05/08/25 23:27 Departure 1 Departure Time of Disposition: 00:43 Impression: Primary Impression: Dysuria Additional Impression: Back pain Disposition: 01 HOME / SELF CARE / HOMELESS Condition: Stable Additional Instructions: Advised patient utilize medication as needed for relief and additionally, if symptoms do not resolve, patient will need to follow up with the primary care provider for possible Urology referral and evaluation. e-Prescriptions Acetaminophen (Acetaminophen) 500 Mg Tab 500 MG PO Q4HP PRN, #30 TAB Prov: POOJA HELTON PAC 05/09/25 Ibuprofen Micronized (Ibuprofen) 800 Mg Tab 800 MG PO Q8HP PRN, #20 TAB Prov: POOJA HELTON PAC 7/25/25 Phenazopyridine HCl (Phenazopyridine Hydrochlo) 100 Mg Tab 100 MG PO Q8HP PRN, #15 TAB Prov: POOJA HELTON PAC 05/09/25 Discharged With: Self, Friend Critical Care Note Critical Care Time?: No Stability Stability form required: No Heart Score Heart Score: Heart Score Response (Comments) Value History N/A 0 EKG N/A 0 Age N/A 0 Risk Factors N/A 0 Troponin N/A 0 Total 0 POOJA HELTON PAC May 09, 2025 00:45
[2025-05-09 01:02] VITALS: BP 132/85; PULSE 89; RESP 20; TEMP 98; O2SAT 100
== END 2025-05-09 01:04 | disposition home or self-care (01) ==
LOC: ER 22:29
DX: R30.0 Dysuria (principal); M54.9 Dorsalgia, unspecified; F17.210 Nicotine dependence, cigarettes, uncomplicated; J44.89 Other specified chronic obstructive pulmonary disease; J45.909 Unspecified asthma, uncomplicated; E11.9 Type 2 diabetes mellitus without complications; E66.01 Morbid (severe) obesity due to excess calories; I10 Essential (primary) hypertension; Z98.890 Other specified postprocedural states; Z68.29 Body mass index [BMI] 29.0-29.9, adult; Z88.1 Allergy status to other antibiotic agents; Z87.11 Personal history of peptic ulcer disease; Z79.899 Other long term (current) drug therapy; Z79.52 Long term (current) use of systemic steroids
CPT/HCPCS: 74176; 81001; 96372; 99285; J1885